=== PATIENT | female | born 1995 | race Two or more races ===

== ENCOUNTER 2020-05-07 12:30 | Inpatient (IN) | payer MEDICAID ==
[~2020-05-07] VITALS: Ht 157.5 cm; Wt 77.1 kg
[~2020-05-07 12:30] MED LIST: CITRIC ACID/SODIUM CITRATE 30 ML SOLUTION UDCUP PO PRN; LIDOCAINE/PF 1% 30 ML VIAL INJ PRN; METHYLERGONOVINE MALEATE 0.2 MG/ML VIAL IM PRN; METOCLOPRAMIDE HCL 5 MG/ML 2 ML VIAL IVP PRN; OXYGEN THERAPY IH SCH; OXYTOCIN 30 UNITS/LACT RINGERS 500 ML IV ONE; RINGERS SOLUTION,LACTATED 1,000 ML IV PRN
[2020-05-07] MEDS ORDERED: RINGERS SOLUTION,LACTATED 1,000 ML IV SCH (12:39)
[2020-05-07] MEDS ORDERED: MISOPROSTOL 25 MCG TABLET VG ONE (12:45)
[2020-05-07 13:05] VITALS: BP 103/54
[2020-05-07 13:41] LABS: BASOPHILS % (AUTO) 0.4 % (0.0-2.0); EOSINOPHILS % (AUTO) 0.6 % (1.0-6.0); HEMOGLOBIN 11.4 g/dL (12.0-16.0); LYMPHOCYTES # (AUTO) 1.4 K/uL (1.0-4.8); LYMPHOCYTES % (AUTO) 14.4 % (22.0-44.0); MEAN CORPUSCULAR HEMOGLOBIN 29.6 pg (26.0-34.0); MEAN CORPUSCULAR HGB CONC 33.6 G/dL (31.0-37.0); MEAN CORPUSCULAR VOLUME 88 fL (80-100); MONOCYTES # (AUTO) 0.7 K/uL (0.1-1.0); MONOCYTES % (AUTO) 7.8 % (2.0-9.0); NEUTROPHILS # (AUTO) 7.2 K/uL (1.8-7.7); NEUTROPHILS % (AUTO) 76.8 % (40.0-70.0); PLATELET COUNT (AUTO) 319 K/uL (150-450); RED BLOOD CELL COUNT(AUTO) 3.86 MIL/uL (4.00-5.20); RED CELL DISTRIBUTION WIDTH 13.8 % (11.5-14.5)
[2020-05-07] MEDS: RINGERS SOLUTION,LACTATED 1,000 ML IV SCH ×2 (14:18→21:26)
[2020-05-07] MEDS ORDERED: PREN-217 PO (16:23)
[2020-05-07] MEDS ORDERED: MISOPROSTOL 50 MCG TABLET PO ONE (17:00)
[2020-05-08] MEDS: FentaNYL CITRATE-PF 100 MCG/2 ML VIAL IVP PRN ×3 (02:26→06:30)
[2020-05-08] MEDS: RINGERS SOLUTION,LACTATED 1,000 ML IV SCH ×3 (05:40→22:07)
[2020-05-08] MEDS ORDERED: ROPIVACAINE HCL/PF 0.2% 100 ML ED ONE (13:20)
[2020-05-08] MEDS ORDERED: DiphenhydrAMINE HCL 50 MG/ML VIAL IVP PRN (14:00)
[2020-05-08] MEDS ORDERED: ONDANSETRON HCL 4 MG/2 ML VIAL IVP PRN (14:00)
[2020-05-08] MEDS ORDERED: NALBUPHINE HCL 10 MG/ML VIAL IVP PRN (14:00)
[2020-05-08] MEDS ORDERED: DINOPROSTONE 10 MG VAGINAL SUPPOSITORY VG ONE (17:00)
[2020-05-08] MEDS: ROPIVACAINE HCL/PF 0.2% 100 ML ED PRN (20:55)
[2020-05-09] MEDS: ROPIVACAINE HCL/PF 0.2% 100 ML ED PRN (03:51)
[2020-05-09] MEDS: RINGERS SOLUTION,LACTATED 1,000 ML IV SCH (06:52)
[2020-05-09] MEDS: FentaNYL CITRATE-PF 100 MCG/2 ML VIAL IVP PRN ×4 (09:11→18:33)
[2020-05-09] MEDS ORDERED: ROPIVACAINE HCL/PF 0.2% 100 ML ED ONE (11:31)
[2020-05-09] MEDS ORDERED: TRANEXAMIC ACID 1,000 MG in DEXTROSE 5%-WATER 50 ML IV ONE (16:15)
[2020-05-09] MEDS ORDERED: CITRIC ACID/SODIUM CITRATE 30 ML SOLUTION UDCUP ONE (16:57)
[2020-05-09] MEDS ORDERED: TRANEXAMIC ACID 1,000 MG/10 ML VIAL ONE (17:01)
[2020-05-09] MEDS ORDERED: GUM MASTIC/STORAX/MSAL/ALCOHOL LIQUID 0.67 ML VIAL TP ONE (17:02)
[2020-05-09] MEDS ORDERED: KETAMINE HCL 50 MG/ML 10 ML VIAL ONE (17:10)
[2020-05-09] MEDS ORDERED: FentaNYL CITRATE-PF 100 MCG/2 ML VIAL ONE ×2 (17:10→18:18)
[2020-05-09] MEDS ORDERED: MIDAZOLAM HCL 2 MG/2 ML VIAL ONE (17:10)
[2020-05-09] MEDS ORDERED: ONDANSETRON HCL 4 MG/2 ML VIAL ONE (17:11)
[2020-05-09] MEDS ORDERED: DEXAMETHASONE SOD PHOS 4 MG/ML VIAL ONE (17:11)
[2020-05-09] MEDS ORDERED: MORPHINE SULFATE/PF 1 MG/ML 10 ML AMP ONE (17:11)
[2020-05-09] MEDS ORDERED: KETOROLAC TROMETHAMINE 30 MG/ML VIAL ONE ×2 (17:11→18:56)
[2020-05-09] MEDS ORDERED: KETOROLAC TROMETHAMINE 30 MG/ML VIAL IVP ONE (18:45)
[2020-05-09] MEDS ORDERED: METHYLERGONOVINE MALEATE 0.2 MG/ML VIAL ONE (19:59)
[2020-05-09] MEDS ORDERED: OXYTOCIN 30 UNITS/LACT RINGERS 500 ML IV ONE (20:55)
[2020-05-09] MEDS ORDERED: LANOLIN 7 GM OINTMENT TP PRN (21:00)
[2020-05-09] MEDS ORDERED: ROPIVACAINE HCL/PF 0.2% 100 ML ED PRN (21:45)
[2020-05-09] MEDS ORDERED: FentaNYL CITRATE-PF 100 MCG/2 ML VIAL IVP PRN (21:45)
[2020-05-10] MEDS: KETOROLAC TROMETHAMINE 30 MG/ML VIAL IVP SCH ×2 (00:21→06:23)
[2020-05-10] MEDS: RINGERS SOLUTION,LACTATED 1,000 ML IV SCH ×2 (02:37→11:30)
[2020-05-10] MEDS ORDERED: ALBUTEROL SULFATE HFA 90 MCG/PUFF 8 GM INHALER IH ONE (06:34)
[2020-05-10] MEDS ORDERED: DEXAMETHASONE SOD PHOS 4 MG/ML VIAL IVP ONE (06:34)
[2020-05-10] MEDS ORDERED: KETOROLAC TROMETHAMINE 60 MG/2 ML VIAL IM ONE (06:34)
[2020-05-10] MEDS ORDERED: ONDANSETRON HCL 4 MG/2 ML VIAL IVP ONE (06:34)
[2020-05-10] MEDS ORDERED: EPHEDrine SULFATE 50 MG/ML VIAL IM ONE (06:34)
[2020-05-10] MEDS ORDERED: OXYTOCIN 10 UNITS/ML VIAL IM ONE (06:34)
[2020-05-10 06:45] LABS: BASOPHILS % (AUTO) 0.3 % (0.0-2.0); EOSINOPHILS % (AUTO) 0 % (1.0-6.0); HEMATOCRIT 29.8 % (36-46); LYMPHOCYTES # (AUTO) 1.2 K/uL (1.0-4.8); LYMPHOCYTES % (AUTO) 7.5 % (22.0-44.0); MEAN CORPUSCULAR HEMOGLOBIN 29.6 pg (26.0-34.0); MEAN CORPUSCULAR HGB CONC 33.5 G/dL (31.0-37.0); MEAN CORPUSCULAR VOLUME 88 fL (80-100); MONOCYTES # (AUTO) 1.3 K/uL (0.1-1.0); MONOCYTES % (AUTO) 7.9 % (2.0-9.0); NEUTROPHILS # (AUTO) 13.8 K/uL (1.8-7.7); NEUTROPHILS % (AUTO) 84.3 % (40.0-70.0); PLATELET COUNT (AUTO)-OB 276 K/uL (150-450); RED BLOOD CELL COUNT(AUTO) 3.37 MIL/uL (4.00-5.20); RED CELL DISTRIBUTION WIDTH 13.7 % (11.5-14.5)
[2020-05-10] MEDS: MAGNESIUM HYDROXIDE SUSPENSION 30 ML UDCUP PO SCH ×2 (11:29→21:13)
[2020-05-10] MEDS: OxyCODONE HCL/ACETAMINOPHEN 5-325 MG TABLET PO PRN ×2 (11:29→18:31)
[2020-05-10] MEDS: IBUPROFEN 800 MG TABLET PO PRN (20:02)
[2020-05-11] MEDS: IBUPROFEN 800 MG TABLET PO PRN ×3 (05:52→23:00)
[2020-05-11] MEDS: MAGNESIUM HYDROXIDE SUSPENSION 30 ML UDCUP PO SCH ×2 (08:55→20:48)
[2020-05-11] MEDS: OxyCODONE HCL/ACETAMINOPHEN 5-325 MG TABLET PO PRN ×3 (08:56→14:42)
[2020-05-11] MEDS: SIMETHICONE 80 MG CHEWABLE TABLET CHEW PRN ×2 (15:13→20:48)
[2020-05-11] MEDS: POLYETHYLENE GLYCOL 3350 17 GM PACKET PO SCH (16:32)
[2020-05-11] MEDS: SENNA 187 MG TABLET PO SCH (20:48)
[2020-05-11] MEDS: DOCUSATE SODIUM 250 MG CAPSULE PO SCH (20:53)
[2020-05-12] MEDS: DOCUSATE SODIUM 250 MG CAPSULE PO SCH (09:11)
[2020-05-12] MEDS: SIMETHICONE 80 MG CHEWABLE TABLET CHEW PRN (09:12)
[2020-05-12] MEDS: POLYETHYLENE GLYCOL 3350 17 GM PACKET PO SCH (09:12)
[2020-05-12] MEDS: SENNA 187 MG TABLET PO SCH (09:12)
[2020-05-12] MEDS: IBUPROFEN 800 MG TABLET PO PRN (09:13)
[2020-05-12] MEDS: MAGNESIUM HYDROXIDE SUSPENSION 30 ML UDCUP PO SCH (09:13)
[2020-05-12] MEDS ORDERED: IBUP-2070 PO (11:01)
[2020-05-12] MEDS ORDERED: DOCU-275 PO (11:02)
[2020-05-12] MEDS ORDERED: PERCT PO (11:03)
== END 2020-05-12 13:20 | disposition home or self-care (01) | DRG 540 ==
LOC: OBSVTOIN 12:30 → 4S 12:30
PROVIDERS: ADMIT Obstetrics & Gynecology; ATTEND Obstetrics & Gynecology
PROC: 10D00Z1 Extraction of Products of Conception, Low, Open Approach (ICD-10-PCS; principal; 2020-05-09)
DX: O76 Abnormality in fetal heart rate and rhythm complicating labor and delivery (principal); O63.1 Prolonged second stage (of labor); O69.81X0 Labor and delivery complicated by cord around neck, without compression, not applicable or unspecified; Z3A.38 38 weeks gestation of pregnancy; Z37.0 Single live birth; Z20.828 Contact with and (suspected) exposure to other viral communicable diseases
CPT/HCPCS: 86850; 86900; 86901; 87081; J0690; J1100; J1885; J2210; J2250; J2405; J2590; J2765; J2795; J3010; J3490; J3535; J7060; J7120